=== PATIENT | male | born 2000 | race Caucasian/White ===

== ENCOUNTER 2019-12-22 16:36 | Emergency (ER) | payer OTHER ==
[~2019-12-22] VITALS: Ht 175.3 cm; Wt 59.0 kg
[~2019-12-22 16:36] MED LIST: ACET325UDC; AMOCLA400 PO; CODACEE120 PO; CODGUAEL PO; DIAZ5 PO; HYDACE5 PO; IBUP100S; OXYC1TAB11 PO; Omeprazole20 M1 PO; PENVK250; RXONDA4ODT MM; ZOSTRIX56.6 GM TOP
[2019-12-22 16:56] LABS: BASOPHILS ABSOLUTE AUTO 0.03 K/mm3 (0.00-0.23); BASOPHILS PERCENT AUTO 0 % (0-2); EOSINOPHILS ABSOLUTE AUTO 0.01 K/mm3 (0.00-0.68); EOSINOPHILS PERCENT AUTO 0 % (0-6); Hematocrit 48.8 % (37.0-53.0); Hemoglobin 16.8 g/dL (13.5-17.5); IMMATURE GRAN ABSOLUTE AUTO 0.02 K/mm3 (0.00-0.10); IMMATURE GRAN PERCENT AUTO 0 % (0-1); LYMPHOCYTES PERCENT AUTO 21 % (21-46); MONOCYTES ABSOLUTE AUTO 0.39 K/mm3 (0.16-1.47); MONOCYTES PERCENT AUTO 4 % (4-13); Mean Corpuscular HGB 30.2 pg (26.0-34.0); Mean Corpuscular HGB Conc 34.4 g/dL (31.5-36.5); Mean Corpuscular Volume 88 fL (80-100); Mean Platelet Volume 10.7 fL (9.1-12.4); NEUTROPHILS PERCENT AUTO 74 % (41-73); Platelet Count 188 K/mm3 (150-400); RDW Coefficient Variation 11.9 % (11.7-14.2); RDW Standard Deviation 38.3 fL (35.1-46.3); Red Blood Cell Count 5.57 M/mm3 (4.30-5.90); White Blood Cell Count 9.35 K/mm3 (4.00-11.30)
[2019-12-22 17:15] LABS: Alanine Aminotransfer (ALT/SGP 23 U/L (12-78); Albumin, Blood 5.1 g/dL (3.4-5.0); Albumin/Globulin Ratio 1.5 (0.8-1.8); Alk Phos 59 U/L (50-136); Anion Gap 9 mmol/L (6-16); Aspartate Aminotrans (AST/SGOT 14 U/L (12-37); Bilirubin, Total 1.2 mg/dL (0.1-1.0); Blood Urea Nitrogen 16 mg/dL (8-24); CO2, Blood 23 mmol/L (21-32); Calcium, Blood 9.8 mg/dL (8.5-10.1); Chloride, Blood 106 mmol/L (98-108); Creatinine, Blood 1.33 mg/dL (0.60-1.20); Globulin, Blood 3.3 g/dL (2.2-4.0); Glomerular Filtration Rate >60 (60-); Glucose, Blood 115 mg/dL (70-99); Potassium, Blood 3.9 mmol/L (3.5-5.5); Sodium, Blood 138 mmol/L (136-145); Total Protein, Blood 8.4 g/dL (6.4-8.2)
[2019-12-22] MEDS ORDERED: ONDA4ODT MM (21:08)
[2019-12-22] MEDS ORDERED: PROM25S PR (21:08)
== END 2019-12-22 21:24 | disposition home or self-care (01) ==
LOC: ER 16:36
PROVIDERS: Emergency Medicine
DX: R19.7 Diarrhea, unspecified (principal); R11.2 Nausea with vomiting, unspecified; R10.84 Generalized abdominal pain
CPT/HCPCS: 36415; 80053; 83690; 85025; 96361; 96374; 96375; 99284-25; J1200; J1630; J2405; J7120

== ENCOUNTER 2021-03-25 15:37 | Emergency (ER) | payer OTHER ==
[~2021-03-25] VITALS: Ht 175.3 cm; Wt 59.0 kg
[~2021-03-25 15:37] MED LIST changes: +ONDA4ODT MM; +PROM25S PR
[2021-03-25 16:46] LABS: BASOPHILS ABSOLUTE AUTO 0.03 K/mm3 (0.00-0.23); BASOPHILS PERCENT AUTO 0 % (0-2); EOSINOPHILS ABSOLUTE AUTO 0.01 K/mm3 (0.00-0.68); EOSINOPHILS PERCENT AUTO 0 % (0-6); Hematocrit 45.8 % (37.0-53.0); Hemoglobin 15.8 g/dL (13.5-17.5); IMMATURE GRAN ABSOLUTE AUTO 0.02 K/mm3 (0.00-0.10); IMMATURE GRAN PERCENT AUTO 0 % (0-1); LYMPHOCYTES ABSOLUTE AUTO 2.14 K/mm3 (0.84-5.20); LYMPHOCYTES PERCENT AUTO 27 % (21-46); MONOCYTES ABSOLUTE AUTO 0.45 K/mm3 (0.16-1.47); MONOCYTES PERCENT AUTO 6 % (4-13); Mean Corpuscular HGB 30.3 pg (26.0-34.0); Mean Corpuscular HGB Conc 34.5 g/dL (31.5-36.5); Mean Corpuscular Volume 88 fL (80-100); Mean Platelet Volume 10.1 fL (9.1-12.4); NEUTROPHILS ABSOLUTE AUTO 5.33 K/mm3 (1.96-9.15); NEUTROPHILS PERCENT AUTO 67 % (41-73); Platelet Count 185 K/mm3 (150-400); RDW Coefficient Variation 12.5 % (11.7-14.2); RDW Standard Deviation 40.3 fL (35.1-46.3); Red Blood Cell Count 5.22 M/mm3 (4.30-5.90); White Blood Cell Count 7.98 K/mm3 (4.00-11.30)
[2021-03-25 17:06] LABS: Alanine Aminotransfer (ALT/SGP 20 U/L (12-78); Albumin, Blood 4.5 g/dL (3.4-5.0); Albumin/Globulin Ratio 1.4 (0.8-1.8); Alk Phos 50 U/L (50-136); Anion Gap 5 mmol/L (6-16); Aspartate Aminotrans (AST/SGOT 13 U/L (12-37); Bilirubin, Total 0.8 mg/dL (0.1-1.0); Blood Urea Nitrogen 12 mg/dL (8-24); Bun/Creatinine Ratio 10.2 (12.0-20.0); CO2, Blood 25 mmol/L (21-32); Calcium, Blood 9.1 mg/dL (8.5-10.1); Chloride, Blood 111 mmol/L (98-108); Creatinine, Blood 1.18 mg/dL (0.60-1.20); Globulin, Blood 3.2 g/dL (2.2-4.0); Glomerular Filtration Rate >60 (60-); Glucose, Blood 96 mg/dL (70-99); Potassium, Blood 3.6 mmol/L (3.5-5.5); Sodium, Blood 141 mmol/L (136-145); Total Protein, Blood 7.7 g/dL (6.4-8.2); Troponin I <0.015 ng/mL (0.000-0.040)
[2021-03-25] MEDS ORDERED: Reglan10 MG PO (17:46)
== END 2021-03-25 17:52 | disposition home or self-care (01) ==
LOC: ER 15:37
PROVIDERS: Emergency Medicine Emergency Medical Services
DX: R10.12 Left upper quadrant pain (principal); R11.2 Nausea with vomiting, unspecified; F17.200 Nicotine dependence, unspecified, uncomplicated
CPT/HCPCS: 36415; 71045; 80053; 83690; 84484; 85025; 93005; 93010; 96374; 96375; 99284-25; J2405; J2765; J7030

== ENCOUNTER → 2024-01-22 | Outpatient (CLI) | payer OTHER ==
[~2024-01-22] MED LIST changes: +Reglan10 MG PO
[2024-01-22 12:15] LABS: BASOPHILS ABSOLUTE AUTO 0.02 K/mm3 (0.00-0.23); BASOPHILS PERCENT AUTO 1 % (0-2); EOSINOPHILS ABSOLUTE AUTO 0.03 K/mm3 (0.00-0.68); EOSINOPHILS PERCENT AUTO 1 % (0-6); Hematocrit 44.1 % (37.0-53.0); Hemoglobin 14.7 g/dL (13.5-17.5); IMMATURE GRAN ABSOLUTE AUTO 0.01 K/mm3 (0.00-0.10); IMMATURE GRAN PERCENT AUTO 0 % (0-1); LYMPHOCYTES ABSOLUTE AUTO 1.73 K/mm3 (0.84-5.20); LYMPHOCYTES PERCENT AUTO 40 % (21-46); MONOCYTES ABSOLUTE AUTO 0.23 K/mm3 (0.16-1.47); MONOCYTES PERCENT AUTO 5 % (4-13); Mean Corpuscular HGB 29.6 pg (26.0-34.0); Mean Corpuscular HGB Conc 33.3 g/dL (31.5-36.5); Mean Corpuscular Volume 89 fL (80-100); Mean Platelet Volume 10.4 fL (9.1-12.4); NEUTROPHILS PERCENT AUTO 53 % (41-73); Platelet Count 161 K/mm3 (150-400); RDW Coefficient Variation 12.3 % (11.7-14.2); RDW Standard Deviation 39.8 fL (35.1-46.3); Red Blood Cell Count 4.96 M/mm3 (4.30-5.90); White Blood Cell Count 4.32 K/mm3 (4.00-11.30)
[2024-01-22 12:24] LABS: Albumin, Blood 4.2 g/dL (3.4-5.0); Albumin/Globulin Ratio 1.4 (0.8-1.8); Bilirubin, Total 0.5 mg/dL (0.1-1.0); Bun/Creatinine Ratio 10.5 (12.0-20.0); Calcium, Blood 8.9 mg/dL (8.5-10.1); Creatinine, Blood 1.14 mg/dL (0.60-1.20); Globulin, Blood 3.1 g/dL (2.2-4.0); Potassium, Blood 4.6 mmol/L (3.5-5.5); Total Protein, Blood 7.3 g/dL (6.4-8.2)
[2024-01-24 21:48] LABS: TISSUE TRANSGLUTAMINASE AB,IGG <0.82 FLU (0.00-4.99)
== END ==
LOC: LAB 12:09 → LAB SHORT 12:09
PROVIDERS: Internal Medicine
DX: R19.7 Diarrhea, unspecified (principal)
CPT/HCPCS: 80053; 83516; 83690; 85025; 86364

== ENCOUNTER 2024-04-28 14:23 | Emergency (ER) | payer OTHER ==
[~2024-04-28] VITALS: Ht 175.3 cm; Wt 45.4 kg
[2024-04-28] MEDS ORDERED: Droperidol 5 mg/2 ml Vial IV ONE ×2 (14:50→15:35)
[2024-04-28] MEDS ORDERED: NS 1,000 ML IV SCH (14:50)
[2024-04-28 15:02] LABS: BASOPHILS ABSOLUTE AUTO 0.03 K/mm3 (0.00-0.23); BASOPHILS PERCENT AUTO 0 % (0-2); EOSINOPHILS ABSOLUTE AUTO 0.01 K/mm3 (0.00-0.68); EOSINOPHILS PERCENT AUTO 0 % (0-6); Hematocrit 45.7 % (37.0-53.0); Hemoglobin 16.3 g/dL (13.5-17.5); IMMATURE GRAN ABSOLUTE AUTO 0.03 K/mm3 (0.00-0.10); IMMATURE GRAN PERCENT AUTO 0 % (0-1); LYMPHOCYTES ABSOLUTE AUTO 2.56 K/mm3 (0.84-5.20); LYMPHOCYTES PERCENT AUTO 36 % (21-46); MONOCYTES PERCENT AUTO 6 % (4-13); Mean Corpuscular HGB 29.9 pg (26.0-34.0); Mean Corpuscular HGB Conc 35.7 g/dL (31.5-36.5); Mean Corpuscular Volume 84 fL (80-100); Mean Platelet Volume 10.9 fL (9.1-12.4); NEUTROPHILS ABSOLUTE AUTO 4.13 K/mm3 (1.96-9.15); NEUTROPHILS PERCENT AUTO 58 % (41-73); Platelet Count 205 K/mm3 (150-400); RDW Coefficient Variation 12.5 % (11.7-14.2); RDW Standard Deviation 37.8 fL (35.1-46.3); Red Blood Cell Count 5.46 M/mm3 (4.30-5.90); White Blood Cell Count 7.16 K/mm3 (4.00-11.30)
[2024-04-28] MEDS ORDERED: Metoclopramide HCl 5MG / ML 2ML Vial IV ONE (15:15)
[2024-04-28 15:18] LABS: Albumin, Blood 4.7 g/dL (3.4-5.0); Albumin/Globulin Ratio 1.6 (0.8-1.8); Bilirubin, Total 1.1 mg/dL (0.1-1.0); Bun/Creatinine Ratio 10.1 (12.0-20.0); Calcium, Blood 9.4 mg/dL (8.5-10.1); Creatinine, Blood 1.19 mg/dL (0.60-1.20); Globulin, Blood 2.9 g/dL (2.2-4.0); Potassium, Blood 4.2 mmol/L (3.5-5.5); Total Protein, Blood 7.6 g/dL (6.4-8.2)
[2024-04-28] MEDS ORDERED: Famotidine 10 MG/ML 2ML Vial IV ONE (15:35)
[2024-04-28] MEDS ORDERED: PANTOPRAZOLE SO40 M2 PO (16:13)
[2024-04-28] MEDS ORDERED: BISMUTH PO (16:13)
[2024-04-28] MEDS ORDERED: Tetracycline H500 MG (16:13)
[2024-04-28] MEDS ORDERED: AMITRIPTYLINE H25 MG PO (16:14)
[2024-04-28] MEDS ORDERED: OMEPRAZOLE20 M3 PO (16:14)
[2024-04-28] MEDS ORDERED: CLENPIQ PO (16:14)
[2024-04-28] MEDS ORDERED: METR500 PO (16:14)
[2024-04-28] MEDS ORDERED: Phenergan25 M1 PO (16:14)
[2024-04-28] MEDS ORDERED: METO10 PO (16:52)
[2024-04-28] MEDS ORDERED: ONDA4ODT MM (16:52)
[2024-04-28 17:00] VITALS: BP 117/59
== END 2024-04-28 17:26 | disposition home or self-care (01) ==
LOC: ER 14:23
PROVIDERS: Emergency Medicine
DX: R11.10 Vomiting, unspecified (principal)
CPT/HCPCS: 80053; 83690; 85025; 96361; 96374; 96375; 99284-25; J1790; J2765; J7030

== ENCOUNTER 2024-06-08 01:03 | Emergency (ER) | payer OTHER ==
[~2024-06-08] VITALS: Ht 175.3 cm; Wt 45.4 kg
[~2024-06-08 01:03] MED LIST changes: +AMITRIPTYLINE H25 MG PO; +BISMUTH PO; +CLENPIQ PO; +METO10 PO; +METR500 PO; +OMEPRAZOLE20 M3 PO; +PANTOPRAZOLE SO40 M2 PO; +Phenergan25 M1 PO; +Tetracycline H500 MG
[2024-06-08 01:09] VITALS: BP 126/71
[2024-06-08 01:26] LABS: BASOPHILS ABSOLUTE AUTO 0.02 K/mm3 (0.00-0.23); BASOPHILS PERCENT AUTO 0 % (0-2); EOSINOPHILS PERCENT AUTO 0 % (0-6); Hematocrit 46.4 % (37.0-53.0); Hemoglobin 16.6 g/dL (13.5-17.5); IMMATURE GRAN ABSOLUTE AUTO 0.02 K/mm3 (0.00-0.10); IMMATURE GRAN PERCENT AUTO 0 % (0-1); LYMPHOCYTES ABSOLUTE AUTO 0.98 K/mm3 (0.84-5.20); LYMPHOCYTES PERCENT AUTO 12 % (21-46); MONOCYTES PERCENT AUTO 5 % (4-13); Mean Corpuscular HGB 30.3 pg (26.0-34.0); Mean Corpuscular HGB Conc 35.8 g/dL (31.5-36.5); Mean Corpuscular Volume 85 fL (80-100); Mean Platelet Volume 10.5 fL (9.1-12.4); NEUTROPHILS ABSOLUTE AUTO 7.05 K/mm3 (1.96-9.15); NEUTROPHILS PERCENT AUTO 83 % (41-73); Platelet Count 219 K/mm3 (150-400); RDW Coefficient Variation 12.4 % (11.7-14.2); RDW Standard Deviation 37.9 fL (35.1-46.3); Red Blood Cell Count 5.48 M/mm3 (4.30-5.90); White Blood Cell Count 8.47 K/mm3 (4.00-11.30)
[2024-06-08] MEDS ORDERED: Droperidol 5 mg/2 ml Vial IV ONE (01:40)
[2024-06-08] MEDS ORDERED: Mag Hydrox/AL Hydrox/Simeth 30 ML UDC PO ONE (01:40)
[2024-06-08 02:00] LABS: Albumin, Blood 5.1 g/dL (3.4-5.0); Albumin/Globulin Ratio 1.5 (0.8-1.8); Bilirubin, Total 1.4 mg/dL (0.1-1.0); Bun/Creatinine Ratio 12.2 (12.0-20.0); Calcium, Blood 10.6 mg/dL (8.5-10.1); Creatinine, Blood 1.39 mg/dL (0.60-1.20); Globulin, Blood 3.4 g/dL (2.2-4.0); Potassium, Blood 3.6 mmol/L (3.5-5.5); Total Protein, Blood 8.5 g/dL (6.4-8.2)
[2024-06-08] MEDS ORDERED: NS 1,000 ML IV SCH (03:30)
[2024-06-08] MEDS ORDERED: Ketorolac Tromethamine 30mg Vial IV ONE (03:30)
[2024-06-08] MEDS ORDERED: DiphenhydrAMINE HCl 50 MG/ML 1ML Vial IV ONE (03:40)
[2024-06-08] MEDS ORDERED: Prochlorperazine Edisylate 10 mg Vial IV ONE (03:40)
== END 2024-06-08 04:37 | disposition home or self-care (01) ==
LOC: ER 01:03
PROVIDERS: Emergency Medicine
DX: R11.2 Nausea with vomiting, unspecified (principal); Z79.899 Other long term (current) drug therapy
CPT/HCPCS: 76705; 80053; 83690; 85025; 93005; 93010; 96361; 96374; 96375; 99284-25; A9270; J0780; J1200; J1790; J1885; J7030

== ENCOUNTER → 2024-06-22 | Outpatient (CLI) | payer OTHER | LOC: LAB SHORT 11:11 → LAB 11:11 | DX: L03.012 Cellulitis of left finger (principal); M79.646 Pain in unspecified finger(s) | CPT/HCPCS: 87070; 87205 ==

== ENCOUNTER 2025-02-04 00:25 | Emergency (ER) | payer OTHER ==
[~2025-02-04] VITALS: Ht 175.3 cm; Wt 54.4 kg
[2025-02-04] MEDS ORDERED: Ondansetron HCl 2 MG / ML 2ML Vial IV ONE (00:40)
[2025-02-04 00:53] LABS: BASOPHILS ABSOLUTE AUTO 0.03 K/mm3 (0.00-0.23); BASOPHILS PERCENT AUTO 0 % (0-2); EOSINOPHILS ABSOLUTE AUTO 0.00 K/mm3 (0.00-0.68); EOSINOPHILS PERCENT AUTO 0 % (0-6); Hematocrit 45.3 % (37.0-53.0); Hemoglobin 15.8 g/dL (13.5-17.5); IMMATURE GRAN ABSOLUTE AUTO 0.02 K/mm3 (0.00-0.10); IMMATURE GRAN PERCENT AUTO 0 % (0-1); LYMPHOCYTES ABSOLUTE AUTO 1.71 K/mm3 (0.84-5.20); LYMPHOCYTES PERCENT AUTO 19 % (21-46); MONOCYTES ABSOLUTE AUTO 0.47 K/mm3 (0.16-1.47); MONOCYTES PERCENT AUTO 5 % (4-13); Mean Corpuscular HGB Conc 34.9 g/dL (31.5-36.5); Mean Corpuscular Volume 85 fL (80-100); NEUTROPHILS ABSOLUTE AUTO 6.85 K/mm3 (1.96-9.15); NEUTROPHILS PERCENT AUTO 76 % (41-73); NRBC ABSOLUTE 0.00 K/mm3 (0.00-0.02); NRBC Auto 0.0 /100 WBC (0.0-0.2); Platelet Count 174 K/mm3 (150-400); RDW Coefficient Variation 11.9 % (11.7-14.2); RDW Standard Deviation 36.9 fL (35.1-46.3)
[2025-02-04 01:12] LABS: Alanine Aminotransfer (ALT/SGP 17.0 U/L (12-78); Albumin, Blood 4.5 g/dL (3.4-5.0); Albumin/Globulin Ratio 1.3 (0.8-1.8); Anion Gap 10.0 mmol/L (3-11); Aspartate Aminotrans (AST/SGOT 14.0 U/L (12-37); Bilirubin, Total 1.0 mg/dL (0.1-1.0); Blood Urea Nitrogen 13.0 mg/dL (8-24); CO2, Blood 25.0 mmol/L (21-32); Calcium, Blood 9.5 mg/dL (8.5-10.1); Chloride, Blood 106.0 mmol/L (98-108); Creatinine, Blood 1.28 mg/dL (0.60-1.20); Globulin, Blood 3.5 g/dL (2.2-4.0); Glucose, Blood 104.0 mg/dL (70-99); Potassium, Blood 3.5 mmol/L (3.5-5.5); Sodium, Blood 137.0 mmol/L (136-145); Total Protein, Blood 8.0 g/dL (6.4-8.2)
[2025-02-04 02:15] VITALS: BP 134/90
[2025-02-04] MEDS ORDERED: Prochlorperazine Edisylate 10 mg Vial IV ONE (02:30)
[2025-02-04] MEDS ORDERED: DiphenhydrAMINE HCl 50 MG/ML 1ML Vial IV ONE (02:30)
[2025-02-04] MEDS ORDERED: NS 1,000 ML IV SCH (02:30)
[2025-02-04 02:44] LABS: Magnesium, Blood 1.9 mg/dL (1.6-2.4); Phosphorus, Blood 1.6 mg/dL (2.5-4.9)
[2025-02-05] MEDS ORDERED: BENADRYL25 MG PO ×2 (14:53)
[2025-02-05] MEDS ORDERED: METO10 PO ×2 (14:54)
[2025-02-05] MEDS ORDERED: OXAYDO5 M1 PO ×2 (14:55)
== END 2025-02-04 03:04 | disposition left against medical advice (07) ==
LOC: ER 00:25
PROVIDERS: Emergency Medicine
DX: R10.13 Epigastric pain (principal); R11.2 Nausea with vomiting, unspecified; E86.0 Dehydration; F17.200 Nicotine dependence, unspecified, uncomplicated; Z53.29 Procedure and treatment not carried out because of patient's decision for other reasons; Z79.899 Other long term (current) drug therapy
CPT/HCPCS: 80053; 83690; 83735; 84100; 85025; 93005; 93010; 96374; 96375; 99284-25; J0780; J1200; J2405; J7030

== ENCOUNTER 2025-02-04 11:21 | Inpatient (IN) | payer OTHER ==
[~2025-02-04] VITALS: Ht 165.1 cm; Wt 59.5 kg
[2025-02-04] MEDS ORDERED: NS 1,000 ML IV SCH (11:45)
[2025-02-04 12:01] LABS: BASOPHILS ABSOLUTE AUTO 0.02 K/mm3 (0.00-0.23); BASOPHILS PERCENT AUTO 0 % (0-2); EOSINOPHILS ABSOLUTE AUTO 0.02 K/mm3 (0.00-0.68); EOSINOPHILS PERCENT AUTO 0 % (0-6); Hematocrit 43.6 % (37.0-53.0); Hemoglobin 15.2 g/dL (13.5-17.5); IMMATURE GRAN ABSOLUTE AUTO 0.01 K/mm3 (0.00-0.10); IMMATURE GRAN PERCENT AUTO 0 % (0-1); LYMPHOCYTES ABSOLUTE AUTO 1.41 K/mm3 (0.84-5.20); LYMPHOCYTES PERCENT AUTO 19 % (21-46); MONOCYTES ABSOLUTE AUTO 0.51 K/mm3 (0.16-1.47); MONOCYTES PERCENT AUTO 7 % (4-13); Mean Corpuscular HGB Conc 34.9 g/dL (31.5-36.5); Mean Corpuscular Volume 86 fL (80-100); NEUTROPHILS ABSOLUTE AUTO 5.41 K/mm3 (1.96-9.15); NEUTROPHILS PERCENT AUTO 73 % (41-73); NRBC ABSOLUTE 0.00 K/mm3 (0.00-0.02); NRBC Auto 0.0 /100 WBC (0.0-0.2); Platelet Count 172 K/mm3 (150-400); RDW Coefficient Variation 12.0 % (11.7-14.2); RDW Standard Deviation 38.2 fL (35.1-46.3)
[2025-02-04 12:32] LABS: Alanine Aminotransfer (ALT/SGP 16.0 U/L (12-78); Albumin, Blood 4.3 g/dL (3.4-5.0); Albumin/Globulin Ratio 1.4 (0.8-1.8); Anion Gap 8.0 mmol/L (3-11); Aspartate Aminotrans (AST/SGOT 12.0 U/L (12-37); Bilirubin, Total 1.3 mg/dL (0.1-1.0); Blood Urea Nitrogen 13.0 mg/dL (8-24); CO2, Blood 28.0 mmol/L (21-32); Calcium, Blood 9.2 mg/dL (8.5-10.1); Chloride, Blood 104.0 mmol/L (98-108); Creatinine, Blood 1.24 mg/dL (0.60-1.20); Globulin, Blood 3.0 g/dL (2.2-4.0); Glucose, Blood 118.0 mg/dL (70-99); Potassium, Blood 3.5 mmol/L (3.5-5.5); Sodium, Blood 136.0 mmol/L (136-145); Total Protein, Blood 7.3 g/dL (6.4-8.2)
[2025-02-04] MEDS ORDERED: HYDROmorphone HCl/Pf 1MG SYR IV ONE ×3 (13:15→20:10)
[2025-02-04] MEDS ORDERED: Ondansetron HCl 2 MG / ML 2ML Vial IV ONE ×2 (13:30→16:00)
[2025-02-04] MEDS ORDERED: Haloperidol Lactate Inj. 5 MG/ML Injection IV ONE (14:25)
[2025-02-04] MEDS ORDERED: Ondansetron HCl 2 MG / ML 2ML Vial IV PRN ×2 (15:45→16:00)
[2025-02-04] MEDS ORDERED: HYDROmorphone HCl/Pf 1MG SYR IV PRN ×3 (15:45→20:15)
[2025-02-04 18:20] VITALS: BP 130/78
--- NOTE | 2025-02-04 20:05 | NUR ---
Uncontrolled pain and nausea Patient requesting more pain medication and antinausea med, claiming that zofran does not work. Called, spoke with, and received telephone 3 orders with repeat back from Abbi Kyle NP. Orders are: Give 1mg IV dilaudid now for severe pain, give 5mg IV reglan q6h PRN for nausea/vomiting, and change current dilaudid order to reflect 0.5-1mg IV dilaudid q2h PRN for severe pain. Unable to change current dilaudid order so it was discontinued. The new dilaudid order from Abbi Kyle NP has been entered into [facility].
[2025-02-04] MEDS ORDERED: Metoclopramide HCl 5MG / ML 2ML Vial IV PRN (20:10)
[2025-02-04 21:05] VITALS: BP 117/61
--- NOTE | 2025-02-05 01:18 | NUR ---
Daily Weights Order Accidentally d/c'd daily weight ordered on this patient. Re-entered back into orders using the original MD's mneumonic.
[2025-02-05 03:52] VITALS: BP 114/58
--- NOTE | 2025-02-05 05:01 | NUR ---
Shift Summary AOx4. Flat affect. Interacts with staff minimally. C/O 8-9/10 abdominal pain roughly every 2 hours with some nausea and requesting for dilaudid and reglan. States zofran does not work. Pt reports dilaudid is somewhat effective at bringing down pain a notch or two, from 8 to 7 or 6 for example, but no lower. Pt is resting in bed. Informed that urine sample is needed. Patient verbalizes understanding, but states that he has not urinated since arrival to unit and that in the morning, he would be able to pee. Patient has already received 2 Liter boluses in the ER, approx 1 Liter on this unit and another 1 Liter currently infusing. Bladder scan showed 331cc; per Bladder Management Protocol. Will continue to monitor bladder.
[2025-02-05 05:53] LABS: BASOPHILS ABSOLUTE AUTO 0.02 K/mm3 (0.00-0.23); BASOPHILS PERCENT AUTO 0 % (0-2); EOSINOPHILS ABSOLUTE AUTO 0.04 K/mm3 (0.00-0.68); EOSINOPHILS PERCENT AUTO 1 % (0-6); Hematocrit 39.0 % (37.0-53.0); Hemoglobin 12.9 g/dL (13.5-17.5); IMMATURE GRAN ABSOLUTE AUTO 0.02 K/mm3 (0.00-0.10); IMMATURE GRAN PERCENT AUTO 0 % (0-1); LYMPHOCYTES ABSOLUTE AUTO 3.41 K/mm3 (0.84-5.20); LYMPHOCYTES PERCENT AUTO 45 % (21-46); MONOCYTES ABSOLUTE AUTO 0.65 K/mm3 (0.16-1.47); MONOCYTES PERCENT AUTO 9 % (4-13); Mean Corpuscular HGB Conc 33.1 g/dL (31.5-36.5); Mean Corpuscular Volume 89 fL (80-100); NEUTROPHILS ABSOLUTE AUTO 3.50 K/mm3 (1.96-9.15); NEUTROPHILS PERCENT AUTO 46 % (41-73); NRBC ABSOLUTE 0.00 K/mm3 (0.00-0.02); NRBC Auto 0.0 /100 WBC (0.0-0.2); Platelet Count 142 K/mm3 (150-400); RDW Coefficient Variation 12.3 % (11.7-14.2); RDW Standard Deviation 40.6 fL (35.1-46.3)
[2025-02-05 06:07] LABS: Prothrombin Time Results 12.4 Sec (9.7-11.5)
[2025-02-05 06:12] LABS: Alanine Aminotransfer (ALT/SGP 16 U/L (12-78); Albumin, Blood 3.6 g/dL (3.4-5.0); Albumin/Globulin Ratio 1.4 (0.8-1.8); Anion Gap 6 mmol/L (3-11); Aspartate Aminotrans (AST/SGOT 13 U/L (12-37); Bilirubin, Total 0.8 mg/dL (0.1-1.0); Blood Urea Nitrogen 8 mg/dL (8-24); CHOL/HDL RATIO 3.0; CO2, Blood 27 mmol/L (21-32); Calcium, Blood 7.8 mg/dL (8.5-10.1); Chloride, Blood 109 mmol/L (98-108); Cholesterol 148 mg/dL (50-200); Creatinine, Blood 1.05 mg/dL (0.60-1.20); Globulin, Blood 2.6 g/dL (2.2-4.0); Glucose, Blood 94 mg/dL (70-99); HDL Cholesterol 49 mg/dL (>39); LDL/HDL RATIO 1.7; Low Density Lipoprotein Chol 82 mg/dL (0-110); Potassium, Blood 3.8 mmol/L (3.5-5.5); Sodium, Blood 138 mmol/L (136-145); Total Protein, Blood 6.2 g/dL (6.4-8.2); Triglycerides 83 mg/dL (30-140); Very Low Density Lipoprot Chol 16 mg/dL (6-28)
[2025-02-05 07:07] VITALS: BP 121/71
[2025-02-05] MEDS ORDERED: Pantoprazole Sodium 40 MG Injection IV ONE (07:35)
[2025-02-05 07:42] LABS: U Amphetamine Screen Not Detected; U Barbituate Screen Not Detected; U Benzodiazapine Screen Not Detected; U Buprenorphine Screen Not Detected; U Cannabinoids Screen DETECTED; U Cocaine Screen Not Detected; U Methadone Screen Not Detected; U Methamphetamine Screen Not Detected; U Opiates Screen DETECTED; U Oxycodone Screen Not Detected; U Phencyclidine Screen Not Detected
[2025-02-05] MEDS ORDERED: Enoxaparin 40 MG/0.4 ML SYR SC SCH (09:00)
--- NOTE | 2025-02-05 14:17 | NUR ---
PT WOKE FOR SHIFT REPORT THIS AM. PT IS A&O AND INDEPENDENT IN . ADMITTED FOR ABD PAIN AND NAUSEA. PT WAS NPO, BUT DR NYE TO CHANGING DIET TO LIQUID. NEW MEDICATIONS ADDED; SEE [facility]. PT'S GIRL FRIEND TO WITH DOG LATER AM TO PRESENT. DR BUI AND RESIDENTS TO THRU OUT THE DAY. PT WANTING TO GO HOME THIS AFTERNOON; DR TOBIAS RETURNED TO DISCUSS PLAN OF CARE. PT INSISTANT ON BEING D/C'D TODAY. NEW ORDERS PLACED. REPORT GIVEN TO ONCOMING RN.
[2025-02-05] MEDS ORDERED: BENADRYL25 MG PO (14:53)
[2025-02-05] MEDS ORDERED: METO10 PO (14:54)
[2025-02-05] MEDS ORDERED: OXAYDO5 M1 PO (14:55)
[2025-02-05 15:15] VITALS: BP 133/74
--- NOTE | 2025-02-05 15:18 | NUR ---
pt has been discharged to home, iv removed earlier, intact, new meds faxed to his pharmacy, went over discharge instructions with him and s.o. they verbalized understanding, handed her the hard script for pain meds, left with all belongings via wheelchair with s.o. wheeling him down.
[2025-02-07 00:10] LABS: TISSUE TRANSGLUTAMINAS TTG,IGA <1.02 FLU (0.00-4.99); TISSUE TRANSGLUTAMINASE AB,IGG <0.82 FLU (0.00-4.99)
== END 2025-02-05 15:22 | disposition home or self-care (01) | DRG 392 ==
LOC: ER 11:21 → MEDS 15:43 → ERHOLD 15:43 → MEDS 18:15
PROVIDERS: Emergency Medicine; Student in an Organized Health Care Education/Training Program; ADMIT Hospitalist
DX: R10.9 Unspecified abdominal pain (principal); N17.9 Acute kidney failure, unspecified; R11.2 Nausea with vomiting, unspecified; E86.0 Dehydration; G89.29 Other chronic pain; E80.6 Other disorders of bilirubin metabolism; Z86.19 Personal history of other infectious and parasitic diseases; R10.13 Epigastric pain; F17.200 Nicotine dependence, unspecified, uncomplicated; Z53.29 Procedure and treatment not carried out because of patient's decision for other reasons; Z79.899 Other long term (current) drug therapy
CPT/HCPCS: 36415; 74177; 76705; 80053; 80061; 82947; 83516; 83690; 83735; 84100; 85025; 85610; 86364; 93005; 93010; 96361; 96374; 96375; 99284-25; 99285-25; J0780; J1171; J1200; J1630; J1650; J2405; J2470; J2765; J7030; J7120; Q9967

== ENCOUNTER 2025-02-08 10:55 | Emergency (ER) | payer OTHER ==
[~2025-02-08] VITALS: Ht 175.3 cm; Wt 54.4 kg
[~2025-02-08 10:55] MED LIST changes: +BENADRYL25 MG PO; +OXAYDO5 M1 PO
[2025-02-08] MEDS ORDERED: Metoclopramide HCl 5MG / ML 2ML Vial IV ONE (11:05)
[2025-02-08] MEDS ORDERED: ONDA4 PO (11:12)
[2025-02-08 11:19] LABS: BASOPHILS ABSOLUTE AUTO 0.03 K/mm3 (0.00-0.23); BASOPHILS PERCENT AUTO 0 % (0-2); EOSINOPHILS ABSOLUTE AUTO 0.06 K/mm3 (0.00-0.68); EOSINOPHILS PERCENT AUTO 1 % (0-6); Hematocrit 44.1 % (37.0-53.0); Hemoglobin 15.3 g/dL (13.5-17.5); IMMATURE GRAN ABSOLUTE AUTO 0.02 K/mm3 (0.00-0.10); IMMATURE GRAN PERCENT AUTO 0 % (0-1); LYMPHOCYTES ABSOLUTE AUTO 1.77 K/mm3 (0.84-5.20); LYMPHOCYTES PERCENT AUTO 24 % (21-46); MONOCYTES ABSOLUTE AUTO 0.39 K/mm3 (0.16-1.47); MONOCYTES PERCENT AUTO 5 % (4-13); Mean Corpuscular HGB Conc 34.7 g/dL (31.5-36.5); Mean Corpuscular Volume 86 fL (80-100); NEUTROPHILS ABSOLUTE AUTO 4.97 K/mm3 (1.96-9.15); NEUTROPHILS PERCENT AUTO 69 % (41-73); NRBC ABSOLUTE 0.00 K/mm3 (0.00-0.02); NRBC Auto 0.0 /100 WBC (0.0-0.2); Platelet Count 172 K/mm3 (150-400); RDW Coefficient Variation 11.9 % (11.7-14.2); RDW Standard Deviation 37.3 fL (35.1-46.3)
[2025-02-08] MEDS ORDERED: Morphine Sulfate 4 MG/1 ML Injection IV ONE (11:40)
[2025-02-08 12:27] LABS: Alanine Aminotransfer (ALT/SGP 18.0 U/L (12-78); Albumin, Blood 4.4 g/dL (3.4-5.0); Albumin/Globulin Ratio 1.4 (0.8-1.8); Anion Gap 12.0 mmol/L (3-11); Aspartate Aminotrans (AST/SGOT 12.0 U/L (12-37); Bilirubin, Total 0.7 mg/dL (0.1-1.0); Blood Urea Nitrogen 8.0 mg/dL (8-24); CO2, Blood 23.0 mmol/L (21-32); Calcium, Blood 9.2 mg/dL (8.5-10.1); Chloride, Blood 105.0 mmol/L (98-108); Creatinine, Blood 1.02 mg/dL (0.60-1.20); Globulin, Blood 3.2 g/dL (2.2-4.0); Glucose, Blood 121.0 mg/dL (70-99); Potassium, Blood 3.6 mmol/L (3.5-5.5); Sodium, Blood 136.0 mmol/L (136-145); Total Protein, Blood 7.6 g/dL (6.4-8.2)
[2025-02-08] MEDS ORDERED: Prochlorperazine Edisylate 10 mg Vial IV ONE (13:05)
[2025-02-08 13:19] LABS: Source, Urine Clean Catch
[2025-02-08 13:22] LABS: Bilirubin, Urine Neg (Neg); Glucose Qualitative, Urine Neg (Neg); Ketones, Urine Neg (Neg); Leukocyte Esterase, Urine Neg (Neg); Protein, Urine 1+ (Neg); Specific Gravity, Urine 1.010 (1.003-1.022); Urobilinogen, Urine NORM (Normal)
[2025-02-08 13:24] LABS: Color, Urine Pale Yellow (P-Yellow)
[2025-02-08 13:31] LABS: Red Blood Cells, Urine 0-2 /hpf (0-2); White Blood Cells, Urine 0-2 /hpf (0-5)
[2025-02-08 15:45] VITALS: BP 140/75
== END 2025-02-08 16:04 | disposition home or self-care (01) ==
LOC: ER 10:55
PROVIDERS: Student in an Organized Health Care Education/Training Program
DX: N50.812 Left testicular pain (principal); N50.811 Right testicular pain; R11.2 Nausea with vomiting, unspecified; R10.32 Left lower quadrant pain; Z79.899 Other long term (current) drug therapy
CPT/HCPCS: 76870; 80053; 81001; 83690; 85025; 96374; 96375; 99285-25; A9270; J0780; J1790; J2270; J2765